=== PATIENT | male | born 1950 | race Caucasian/White ===

== ENCOUNTER 2022-10-23 15:11 | Inpatient (IN) | payer OTHER, MEDICAID ==
[~2022-10-23] VITALS: Ht 188 cm; Wt 114.8 kg
[2022-10-23] MEDS ORDERED: HYDROmorphone HCL 2 MG/ML VL/or syr IV ONE (15:45)
[2022-10-23] MEDS ORDERED: ONDANSETRON HCL 4 MG/2 ML VIAL IV ONE ×2 (15:45→23:45)
[2022-10-23 16:01] LABS: Basophils # (auto) 0 10 ^3/uL (0-0.2); Basophils % (auto) 0.3 % (0.0-2.0); Eosinophils # (auto) 0.1 10 ^3/uL (0-0.8); Eosinophils % (auto) 0.4 % (0.0-7.0); Hematocrit 45.2 % (41.0-53.0); Hemoglobin 16.1 g/dL (13.5-17.5); Lymphocytes % (auto) 6.6 % (10.0-50.0); Mean Corpuscular Hemoglobin 31.3 pg (28.0-32.0); Mean Corpuscular Hgb Conc. 35.7 g/dL (32.0-36.0); Mean Corpuscular Volume 87.7 fL (80.0-100.0); Monocytes # (auto) 0.9 10 ^3/uL (0-1.3); Monocytes % (auto) 6.1 % (0.0-12.0); Neutrophils # (auto) 13.4 10 ^3/uL (1.6-8.6); Neutrophils % (auto) 86.6 % (37.0-80.0); Nucleated Red Blood Cells % 0.1 %; Red Blood Cells 5.16 10^6/uL (4.5-5.90); Red Cell Distribution Width 12.6 % (11.8-14.3); White Blood Cell 15.5 10^3/uL (4.4-10.8)
[2022-10-23 16:25] LABS: INR 0.97 (0.9-1.15)
[2022-10-23 16:26] LABS: Albumin 3.8 g/dL (3.4-5.0); BUN/Creatinine Ratio 19.4; Calcium 8.6 mg/dL (8.5-10.1); Potassium 4.1 mmol/L (3.5-5.1)
[2022-10-23 16:29] LABS: Bilirubin, Total 0.5 mg/dL (0.2-1.0); Total Protein 7.3 g/dL (6.4-8.2)
[2022-10-23] MEDS ORDERED: KETAMINE 50mg/ML 10ml Vial (500mg/10ml) IV ONE (17:30)
[2022-10-23] MEDS ORDERED: PROPOFOL 10 MG/ML 20 ML IV ONE (17:30)
[2022-10-23] MEDS ORDERED: NITROGLYCERIN 0.4 MG SL TAB SL PRN (22:30)
[2022-10-23] MEDS ORDERED: ONDANSETRON HCL 4 MG/2 ML VIAL IV PRN (22:30)
[2022-10-23] MEDS ORDERED: MORPHINE SULFATE INJ 2 MG/ml SYRG IV PRN ×2 (22:30)
[2022-10-23] MEDS ORDERED: DOCUSATE SOD 100 MG CAP PO PRN (23:00)
[2022-10-23] MEDS ORDERED: hydrALAZINE HCL 20 MG/ML VL IV PRN (23:00)
[2022-10-23] MEDS ORDERED: MORPHINE SULFATE 4 MG/ML SYR/VIAL IV ONE (23:45)
[2022-10-24] MEDS: SODIUM CHLORIDE 0.9% 1,000 ML IV SCH ×2 (01:55→15:10)
[2022-10-24 05:21] LABS: Basophils # (auto) 0 10 ^3/uL (0-0.2); Basophils % (auto) 0.2 % (0.0-2.0); Eosinophils # (auto) 0.1 10 ^3/uL (0-0.8); Eosinophils % (auto) 0.8 % (0.0-7.0); Hematocrit 40.9 % (41.0-53.0); Hemoglobin 14.8 g/dL (13.5-17.5); Lymphocytes % (auto) 22.7 % (10.0-50.0); Mean Corpuscular Hemoglobin 31.8 pg (28.0-32.0); Mean Corpuscular Hgb Conc. 36.1 g/dL (32.0-36.0); Mean Corpuscular Volume 87.9 fL (80.0-100.0); Monocytes # (auto) 1.2 10 ^3/uL (0-1.3); Monocytes % (auto) 9.1 % (0.0-12.0); Neutrophils # (auto) 8.9 10 ^3/uL (1.6-8.6); Neutrophils % (auto) 67.2 % (37.0-80.0); Red Blood Cells 4.66 10^6/uL (4.5-5.90); Red Cell Distribution Width 12.9 % (11.8-14.3); White Blood Cell 13.2 10^3/uL (4.4-10.8)
[2022-10-24 05:50] LABS: BUN/Creatinine Ratio 21.5; Potassium 3.9 mmol/L (3.5-5.1)
[2022-10-24 06:44] LABS: Urine Blood Negative /uL (Negative); Urine Specific Gravity 1.025 (1.001-1.035)
[2022-10-24] MEDS ORDERED: MIDAZOLAM HCL 2MG/2ML 2ml VIAL (1mg/ml) ONE (07:34)
[2022-10-24] MEDS ORDERED: fentaNYL CITRATE 5 ML ONE (07:34)
[2022-10-24] MEDS ORDERED: ROCURONIUM 10MG/ML 10ML VIAL IV ONE (07:34)
[2022-10-24] MEDS ORDERED: BUPIVACAINE 0.5% P/F INJ 10 ML VIAL ONE ×2 (07:48→07:49)
[2022-10-24] MEDS ORDERED: HYDROmorphone HCL 2 MG/ML VL/or syr IV PRN ×2 (08:15)
[2022-10-24] MEDS ORDERED: ONDANSETRON HCL 4 MG/2 ML VIAL IV PRN (08:15)
[2022-10-24] MEDS ORDERED: ONDANSETRON HCL 4 MG/2 ML VIAL ONE (08:33)
[2022-10-24] MEDS ORDERED: LIDOCAINE 2% (LOCAL ANESTH.) PF 5ml SDV ONE (08:33)
[2022-10-24] MEDS ORDERED: PROPOFOL 10 MG/ML 20 ML IV ONE (08:33)
[2022-10-24] MEDS ORDERED: GELATIN 1 SPONGE SIZE 50 TOP ONE (09:36)
[2022-10-24] MEDS ORDERED: THROMBIN (BOVINE) 5000 UNIT SOL VIAL ONE (09:36)
[2022-10-24] MEDS ORDERED: HYDROmorphone HCL 2 MG/ML VL/or syr IV ONE (12:15)
[2022-10-24] MEDS ORDERED: KETOROLAC TROMETH 30 MG/ML 1ML VIAL IV ONE (12:27)
[2022-10-24 13:00] VITALS: BP 142/77
[2022-10-24] MEDS: KETOROLAC TROMETH 30 MG/ML 1ML VIAL IV SCH ×2 (13:38→21:51)
[2022-10-24] MEDS ORDERED: LISI20TA28 PO (13:59)
[2022-10-24] MEDS ORDERED: ATOR10TA52 PO (13:59)
[2022-10-24 17:00] VITALS: BP 151/73
[2022-10-24] MEDS: ACETAMINOPHEN 500 MG TAB PO SCH (21:49)
[2022-10-24] MEDS: ceFAZolin 2 GM in D5W 5% 100 ML IV SCH ×2 (21:50→22:01)
[2022-10-24 22:00] VITALS: BP 157/90
[2022-10-25] MEDS: KETOROLAC TROMETH 30 MG/ML 1ML VIAL IV SCH ×3 (00:23→12:00)
[2022-10-25 05:00] VITALS: BP 158/77
[2022-10-25 06:12] LABS: Calcium 7.9 mg/dL (8.5-10.1); Potassium 4.2 mmol/L (3.5-5.1)
[2022-10-25 06:19] LABS: BUN/Creatinine Ratio 21.3
[2022-10-25] MEDS: ACETAMINOPHEN 500 MG TAB PO SCH ×2 (06:34→13:41)
[2022-10-25] MEDS: ceFAZolin 2 GM in D5W 5% 100 ML IV SCH ×2 (06:35→13:41)
[2022-10-25] MEDS: ASPirin 81 mg TAB PO SCH ×2 (06:36→08:10)
[2022-10-25] MEDS: SODIUM CHLORIDE 0.9% 1,000 ML IV SCH (07:50)
[2022-10-25] MEDS: ENOXAPARIN SOD 40 MG/0.4 ML SYRINGE SC SCH ×2 (08:12→10:00)
[2022-10-25 09:00] VITALS: BP 153/81
[2022-10-25] MEDS ORDERED: ENOXAPARIN SOD 40 MG/0.4 ML SYRINGE SC SCH (10:00)
[2022-10-25] MEDS ORDERED: ASPI-325 PO (10:21)
[2022-10-25] MEDS ORDERED: HYDR-4902 PO (10:21)
[2022-10-25 12:46] VITALS: BP 135/60
== END 2022-10-25 14:00 | disposition home health service (06) | DRG 494 ==
LOC: EDBD 15:11 → ER 15:19 → OVERFLOW 22:25 → EAST 10-24 13:09
PROVIDERS: ADMIT Hospitalist; ATTEND Hospitalist
PROC: 0SSGXZZ Reposition Left Ankle Joint, External Approach (ICD-10-PCS; 2022-10-23)
PROC: BQ1H1ZZ Fluoroscopy of Left Ankle using Low Osmolar Contrast (ICD-10-PCS; 2022-10-24)
PROC: 0QSK06Z Reposition Left Fibula with Intramedullary Internal Fixation Device, Open Approach (ICD-10-PCS; principal; 2022-10-24 07:39)
DX: S93.05XA Dislocation of left ankle joint, initial encounter (principal); I10 Essential (primary) hypertension; E78.5 Hyperlipidemia, unspecified; Z20.822 Contact with and (suspected) exposure to COVID-19; Y92.89 Other specified places as the place of occurrence of the external cause; W13.2XXA Fall from, out of or through roof, initial encounter; Y93.89 Activity, other specified; Y99.8 Other external cause status
CPT/HCPCS: 36415; 71045; 73590; 73600; 73610; 76000; 80048; 80053; 81003; 83036; 85025; 85610; 87426; 96374; 96375; 96376; 97163; G0378; J0690; J1885; J2001; J2250; J2405; J2704; J3490; J7060

== ENCOUNTER 2022-10-29 12:03 | Emergency (ER) | payer OTHER, MEDICAID ==
[~2022-10-29] VITALS: Ht 188 cm; Wt 100.0 kg
[~2022-10-29 12:03] MED LIST: ASPI-325 PO; ATOR10TA52 PO; HYDR-4902 PO; LISI20TA28 PO
[2022-10-29 14:00] LABS: Basophils # (auto) 0 10 ^3/uL (0-0.2); Basophils % (auto) 0.4 % (0.0-2.0); Eosinophils # (auto) 0.1 10 ^3/uL (0-0.8); Eosinophils % (auto) 0.7 % (0.0-7.0); Hematocrit 39.5 % (41.0-53.0); Hemoglobin 13.9 g/dL (13.5-17.5); Lymphocytes # (auto) 1.7 10 ^3/uL (0.4-5.4); Lymphocytes % (auto) 15.6 % (10.0-50.0); Mean Corpuscular Hemoglobin 30.6 pg (28.0-32.0); Mean Corpuscular Volume 87.2 fL (80.0-100.0); Monocytes # (auto) 1.1 10 ^3/uL (0-1.3); Monocytes % (auto) 10.5 % (0.0-12.0); Neutrophils # (auto) 7.8 10 ^3/uL (1.6-8.6); Neutrophils % (auto) 72.8 % (37.0-80.0); Nucleated Red Blood Cells % 0.2 %; Red Blood Cells 4.53 10^6/uL (4.5-5.90); Red Cell Distribution Width 12.9 % (11.8-14.3); White Blood Cell 10.8 10^3/uL (4.4-10.8)
[2022-10-29 14:15] LABS: Albumin 3.3 g/dL (3.4-5.0); Calcium 8.4 mg/dL (8.5-10.1); Potassium 3.1 mmol/L (3.5-5.1)
[2022-10-29 14:19] LABS: BUN/Creatinine Ratio 30.8; Bilirubin, Total 0.8 mg/dL (0.2-1.0); Total Protein 6.8 g/dL (6.4-8.2)
[2022-10-29] MEDS ORDERED: CIPR-173 PO (22:03)
[2022-10-29] MEDS ORDERED: TAM04C PO (22:03)
[2022-10-29] MEDS ORDERED: CIPROFLOXACIN HCL 500 MG TAB PO ONE (22:15)
[2022-10-29] MEDS ORDERED: TAMSULOSIN HYDROCHLORIDE 0.4 MG CAP PO ONE (22:15)
[2022-10-29 22:51] VITALS: BP 139/60
== END 2022-10-29 22:59 | disposition home or self-care (01) ==
LOC: EDBD 12:03 → ER 12:03
DX: S93.06XD Dislocation of unspecified ankle joint, subsequent encounter (principal); W18.39XD Other fall on same level, subsequent encounter
CPT/HCPCS: 36415; 80053; 85025; 93971